=== PATIENT | female | born 1980 | race Caucasian/White ===

== ENCOUNTER 2017-06-03 22:50 | Emergency (ER) | payer MEDICAID | END 2017-06-04 02:29 | disposition home or self-care (01) | LOC: D.ER 22:50 | DX: S82.832A Other fracture of upper and lower end of left fibula, initial encounter for closed fracture (principal); W19.XXXA Unspecified fall, initial encounter; S63.501A Unspecified sprain of right wrist, initial encounter ==

== ENCOUNTER → 2017-07-16 10:30 | Outpatient (CLI) | payer MEDICAID | END | disposition home or self-care (01) | LOC: D.MRI 07-14 14:30 | DX: S63.511A Sprain of carpal joint of right wrist, initial encounter (principal); X58.XXXA Exposure to other specified factors, initial encounter; Y93.89 Activity, other specified; Y92.89 Other specified places as the place of occurrence of the external cause ==